=== PATIENT | female | born 1975 | race Hispanic/Latino ===

== ENCOUNTER → 2023-02-18 | Outpatient (CLI) | payer MEDICAID ==
[~2023-02-18] MED LIST: ASCO500T20 PO; CHOL400T33 PO; CYAN100099 PO; EVE1000C3 PO; FOLI0.8T3 PO; LAMO200T51 PO; OLAN5TAB76 PO; PANT40TA PO; PRAS1TAB3 PO; SUCR1TAB PO; VITA400T9 PO; VORT20TA PO
== END | disposition home or self-care (01) ==
LOC: RAH 08:41
PROVIDERS: ATTEND Internal Medicine
DX: K29.70 Gastritis, unspecified, without bleeding (principal); R11.2 Nausea with vomiting, unspecified
CPT/HCPCS: 74240

== ENCOUNTER → 2023-04-06 | Outpatient (CLI) | payer MEDICAID | END | disposition home or self-care (01) | LOC: RAH 07:23 | PROVIDERS: ATTEND Internal Medicine | DX: R11.2 Nausea with vomiting, unspecified (principal) | CPT/HCPCS: 78264; A9541 ==